=== PATIENT | female | born 1990 | race Caucasian/White ===

== ENCOUNTER 2017-08-16 22:36 | Emergency (ER) | payer BC ==
[~2017-08-16] VITALS: Ht 167.6 cm; Wt 84.1 kg
[2017-08-16 23:23] LABS: BASO # 0.1 (0.0-0.2); BASO % 0.5 % (0.0-2.0); EOS # 0.1 (0.0-0.7); GRAN # 9.5 (1.4-6.5); GRAN % 75.4 % (42.2-75.2); HEMATOCRIT 42.5 % (37.0-47.0); HEMOGLOBIN 14.5 g/dl (12.5-16.0); LYMPH % 16.1 % (20.0-51.0); MEAN CELL VOLUME 84 fl (80.0-100.0); MEAN CORPUSCULAR HEMOGLOBIN 29 pg (27.0-31.0); MEAN CORPUSCULAR HGB CONC 34 g/dl (33.0-37.0); MONO # 0.8 (0.1-0.6); MONO % 6.7 % (1.7-9.3); PLATELET COUNT 459 K/mm3 (130-400); RED BLOOD COUNT 5.07 M/mm3 (4.10-5.30); WHITE BLOOD COUNT 12.5 K/mm3 (4.8-10.8)
[2017-08-16 23:26] LABS: COLLECTION METHOD CLEAN CATCH
[2017-08-16 23:32] LABS: PH 6 (5-8); URINE APPEARANCE Clear; URINE BACTERIA Rare /hpf; URINE BILIRUBIN Negative (NEGATIVE); URINE BLOOD 1+ (NEGATIVE); URINE COLOR Straw; URINE GLUCOSE Negative (NEGATIVE); URINE KETONE Negative (NEGATIVE); URINE LEUKOCYTE ESTERASE Negative (NEGATIVE); URINE PROTEIN(semi-quant) Negative (NEGATIVE); URINE RBC 0-2 /hpf; URINE UROBILINOGEN Negative (NEGATIVE); URINE WBC 0-2 /hpf
[2017-08-16 23:37] LABS: ADJUSTED CALCIUM 9.5 mg/dL (8.4-10.2); BILIRUBIN,TOTAL 0.6 mg/dL (0.0-1.0); C-REACTIVE PROTEIN 1.8 mg/dL (0.0-0.9); CALCIUM 10.3 mg/dL (8.4-10.2); CREATININE, serum 0.76 mg/dL (0.52-1.25); POTASSIUM 3.2 mmol/L (3.4-5.0); TOTAL PROTEIN 8.7 gm/dL (6.4-8.2)
[2017-08-16 23:38] LABS: STREP SCREEN NEGATIVE
[2017-08-16 23:45] LABS: INFLUENZA A NEGATIVE; INFLUENZA B NEGATIVE
[2017-08-17 00:50] LABS: CEREBROSPINAL TUBE #4
[2017-08-17 00:51] LABS: CEREBROSPINAL TUBE #1; CSF APPEARANCE CLEAR; CSF COLOR COLORLESS; CSF POLYMORPHONUCLEAR 0 % (0-6)
[2017-08-17 00:54] VITALS: TEMP 97.3
[2017-08-17 02:00] VITALS: BP 96/44; PULSE 72
== END 2017-08-17 02:33 | disposition home or self-care (01) ==
LOC: COL.ER 22:36
PROVIDERS: Emergency Medicine
DX: J11.1 Influenza due to unidentified influenza virus with other respiratory manifestations (principal); M54.2 Cervicalgia
CPT/HCPCS: J0696; J1170; J1885; J2405; J7030